=== PATIENT | female | born 1960 | race Caucasian/White ===

== ENCOUNTER 2025-02-19 11:44 | Inpatient (IN) | payer OTHER ==
[~2025-02-19] VITALS: Ht 167.6 cm; Wt 60.0 kg
[~2025-02-19 11:44] MED LIST: METH10 PO
[2025-02-19] MEDS: LORazepam 2 MG/ML VIAL IVP ONE (13:13)
[2025-02-19] MEDS: HydrALAZINE HCL 20 MG/ML VIAL IVP ONE (13:13)
[2025-02-19 13:20] LABS: BASOPHILS % (AUTO) 0.3 % (0.0-2.0); EOSINOPHILS % (AUTO) 0.4 % (1.0-6.0); HEMOGLOBIN 15.6 g/dL (12.0-16.0); LYMPHOCYTES # (AUTO) 0.9 K/uL (1.0-4.8); LYMPHOCYTES % (AUTO) 11.6 % (22.0-44.0); MEAN CORPUSCULAR HEMOGLOBIN 29.7 pg (26.0-34.0); MEAN CORPUSCULAR VOLUME 87 fL (80-100); MONOCYTES # (AUTO) 0.3 K/uL (0.1-1.0); MONOCYTES % (AUTO) 3.8 % (2.0-9.0); NEUTROPHILS # (AUTO) 6.3 K/uL (1.8-7.7); NEUTROPHILS % (AUTO) 83.9 % (40.0-70.0); PLATELET COUNT (AUTO) 267 K/uL (150-450); RED BLOOD CELL COUNT(AUTO) 5.26 MIL/uL (4.00-5.20); RED CELL DISTRIBUTION WIDTH 12.8 % (11.5-14.5); WHITE BLOOD COUNT (AUTO) 7.5 K/uL (4.5-11.0)
[2025-02-19 13:23] LABS: ANION GAP 7 mmol/L (8-16); CALCIUM, TOTAL 9.7 mg/dL (8.8-10.5); CARBON DIOXIDE 30 mmol/L (22-29); CHLORIDE 101 mmol/L (98-107); CREATININE 0.92 mg/dL (0.60-1.30); GLOMERULAR FILTR. RATE CALC > 60 mL/min (>60); GLUCOSE,RANDOM 134 mg/dL (70-110); SODIUM SERUM 138 mmol/L (136-145); UREA NITROGEN, BLOOD 20 mg/dL (7-18)
[2025-02-19] MEDS ORDERED: DICYCLOMINE HCL 10 MG CAPSULE PO PRN (15:30)
[2025-02-19] MEDS ORDERED: ALBUTEROL SULFATE HFA 90 MCG/PUFF 8 GM INHALER IH PRN (15:45)
[2025-02-19 17:23] VITALS: BP 177/90; PULSE 95; RESP 18; TEMP 98.2; O2SAT 98
[2025-02-19] MEDS: SODIUM CHLORIDE 0.9% 1,000 ML IV ONE (18:08)
[2025-02-19] MEDS: TEMAZEPAM 15 MG CAPSULE PO SCH (20:46)
[2025-02-19 20:49] VITALS: BP 157/85; PULSE 87; RESP 18; TEMP 98.3; O2SAT 98
[2025-02-19] MEDS: LORazepam 2 MG/ML VIAL IVP PRN (20:53)
[2025-02-20] VITALS (9 sets, daily range): BP systolic 141–175; BP diastolic 52–112; PULSE 82–121; RESP 17–19; TEMP 98.2–99.1; O2SAT 96–99
[2025-02-20] MEDS: HydrALAZINE HCL 20 MG/ML VIAL IVP PRN (00:32)
[2025-02-20 12:36] LABS: BASOPHILS % (AUTO) 0.5 % (0.0-2.0); EOSINOPHILS % (AUTO) 0.3 % (1.0-6.0); HEMATOCRIT 46.8 % (36-46); HEMOGLOBIN 15.9 g/dL (12.0-16.0); LYMPHOCYTES # (AUTO) 1.3 K/uL (1.0-4.8); LYMPHOCYTES % (AUTO) 16.2 % (22.0-44.0); MEAN CORPUSCULAR HEMOGLOBIN 29.2 pg (26.0-34.0); MEAN CORPUSCULAR HGB CONC 33.9 G/dL (31.0-37.0); MEAN CORPUSCULAR VOLUME 86 fL (80-100); MONOCYTES # (AUTO) 0.3 K/uL (0.1-1.0); MONOCYTES % (AUTO) 3.5 % (2.0-9.0); NEUTROPHILS # (AUTO) 6.3 K/uL (1.8-7.7); NEUTROPHILS % (AUTO) 79.5 % (40.0-70.0); PLATELET COUNT (AUTO) 309 K/uL (150-450); RED BLOOD CELL COUNT(AUTO) 5.43 MIL/uL (4.00-5.20); RED CELL DISTRIBUTION WIDTH 12.9 % (11.5-14.5); WHITE BLOOD COUNT (AUTO) 7.9 K/uL (4.5-11.0)
[2025-02-20 12:51] LABS: ANION GAP 9 mmol/L (8-16); CALCIUM, TOTAL 9.5 mg/dL (8.8-10.5); CARBON DIOXIDE 23 mmol/L (22-29); CHLORIDE 107 mmol/L (98-107); CREATININE 0.72 mg/dL (0.60-1.30); GLOMERULAR FILTR. RATE CALC > 60 mL/min (>60); GLUCOSE,RANDOM 95 mg/dL (70-110); POTASSIUM 3.3 mmol/L (3.5-5.1); SODIUM SERUM 139 mmol/L (136-145); UREA NITROGEN, BLOOD 21 mg/dL (7-18)
[2025-02-20] MEDS: METOCLOPRAMIDE HCL 5 MG/ML 2 ML VIAL IVP PRN (14:29)
[2025-02-20] MEDS: LORazepam 1 MG TABLET PO PRN (17:35)
[2025-02-20 19:09] LABS: ALCOHOL, URINE DRUG SCREEN NEGATIVE (NEGATIVE); AMPHET/METH SCREEN,URINE POSITIVE (NEGATIVE); BARBITURATE SCREEN, URINE NEGATIVE (NEGATIVE); BENZODIAZEPINES SCREEN,URINE NEGATIVE (NEGATIVE); CANNABINOID SCREEN,URINE POSITIVE (NEGATIVE); COCAINE SCREEN,URINE NEGATIVE (NEGATIVE); METHADONE SCREEN, URINE NEGATIVE (NEGATIVE); OPIATE SCREEN,URINE NEGATIVE (NEGATIVE); PHENCYCLIDINE SCREEN,URINE NEGATIVE (NEGATIVE)
[2025-02-21 00:05] VITALS: BP 181/103; PULSE 102; RESP 18; TEMP 98.3; O2SAT 98
[2025-02-21] MEDS: HydrALAZINE HCL 20 MG/ML VIAL IVP PRN (00:10)
[2025-02-21] MEDS: POTASSIUM CHLORIDE 20 MEQ ER TABLET PO ONE (00:10)
[2025-02-21 01:26] VITALS: BP 151/99; PULSE 100
[2025-02-21 04:14] VITALS: BP 156/91; PULSE 112; RESP 18; TEMP 97.9; O2SAT 98
[2025-02-21 08:31] VITALS: BP 154/86; PULSE 124; RESP 18; TEMP 97.9; O2SAT 98
[2025-02-21] MEDS: CloNIDine HCL 0.1 MG TABLET PO SCH (08:34)
[2025-02-21 09:34] LABS: BASOPHILS % (AUTO) 0.3 % (0.0-2.0); EOSINOPHILS % (AUTO) 0.3 % (1.0-6.0); HEMATOCRIT 48.8 % (36-46); HEMOGLOBIN 16.7 g/dL (12.0-16.0); LYMPHOCYTES % (AUTO) 10.7 % (22.0-44.0); MEAN CORPUSCULAR HEMOGLOBIN 29.5 pg (26.0-34.0); MEAN CORPUSCULAR HGB CONC 34.1 G/dL (31.0-37.0); MEAN CORPUSCULAR VOLUME 86 fL (80-100); MONOCYTES # (AUTO) 0.4 K/uL (0.1-1.0); MONOCYTES % (AUTO) 4.5 % (2.0-9.0); NEUTROPHILS % (AUTO) 84.2 % (40.0-70.0); PLATELET COUNT (AUTO) 334 K/uL (150-450); RED BLOOD CELL COUNT(AUTO) 5.65 MIL/uL (4.00-5.20); RED CELL DISTRIBUTION WIDTH 12.8 % (11.5-14.5); WHITE BLOOD COUNT (AUTO) 9.5 K/uL (4.5-11.0)
[2025-02-21 09:53] LABS: ANION GAP 15 mmol/L (8-16); CALCIUM, TOTAL 9.6 mg/dL (8.8-10.5); CARBON DIOXIDE 22 mmol/L (22-29); CHLORIDE 101 mmol/L (98-107); CREATININE 0.79 mg/dL (0.60-1.30); GLOMERULAR FILTR. RATE CALC > 60 mL/min (>60); GLUCOSE,RANDOM 135 mg/dL (70-110); POTASSIUM 3.8 mmol/L (3.5-5.1); SODIUM SERUM 138 mmol/L (136-145); UREA NITROGEN, BLOOD 23 mg/dL (7-18)
[2025-02-21] MEDS: AmLODIPine BESYLATE 5 MG TABLET PO SCH (11:36)
[2025-02-21 12:03] VITALS: BP 164/108; PULSE 113; RESP 16; TEMP 98.3; O2SAT 98
[2025-02-21 19:48] VITALS: BP 132/86; PULSE 92; RESP 18; TEMP 99; O2SAT 94
[2025-02-22] VITALS (7 sets, daily range): BP systolic 145–171; BP diastolic 86–103; PULSE 79–115; RESP 18–19; TEMP 97.5–99.1; O2SAT 96–99
[2025-02-22 07:02] LABS: BASOPHILS % (AUTO) 0.3 % (0.0-2.0); EOSINOPHILS % (AUTO) 0.4 % (1.0-6.0); HEMATOCRIT 48.4 % (36-46); HEMOGLOBIN 16.9 g/dL (12.0-16.0); LYMPHOCYTES # (AUTO) 1.1 K/uL (1.0-4.8); LYMPHOCYTES % (AUTO) 13.3 % (22.0-44.0); MEAN CORPUSCULAR HGB CONC 34.9 G/dL (31.0-37.0); MEAN CORPUSCULAR VOLUME 86 fL (80-100); MONOCYTES # (AUTO) 0.4 K/uL (0.1-1.0); MONOCYTES % (AUTO) 4.9 % (2.0-9.0); NEUTROPHILS # (AUTO) 6.7 K/uL (1.8-7.7); NEUTROPHILS % (AUTO) 81.1 % (40.0-70.0); PLATELET COUNT (AUTO) 278 K/uL (150-450); RED BLOOD CELL COUNT(AUTO) 5.64 MIL/uL (4.00-5.20); RED CELL DISTRIBUTION WIDTH 12.8 % (11.5-14.5); WHITE BLOOD COUNT (AUTO) 8.3 K/uL (4.5-11.0)
[2025-02-22 07:07] LABS: ANION GAP 13 mmol/L (8-16); CALCIUM, TOTAL 9.6 mg/dL (8.8-10.5); CARBON DIOXIDE 25 mmol/L (22-29); CHLORIDE 100 mmol/L (98-107); CREATININE 0.82 mg/dL (0.60-1.30); GLOMERULAR FILTR. RATE CALC > 60 mL/min (>60); GLUCOSE,RANDOM 146 mg/dL (70-110); POTASSIUM 3.8 mmol/L (3.5-5.1); SODIUM SERUM 138 mmol/L (136-145); UREA NITROGEN, BLOOD 21 mg/dL (7-18)
[2025-02-22] MEDS: AmLODIPine BESYLATE 5 MG TABLET PO SCH (21:29)
[2025-02-23] VITALS: BP 147/94; PULSE 83; RESP 18; TEMP 98.6; O2SAT 96
[2025-02-23 04:00] VITALS: BP 150/98; PULSE 93; RESP 16; TEMP 98.6; O2SAT 96
[2025-02-23 06:39] LABS: BASOPHILS % (AUTO) 0.2 % (0.0-2.0); EOSINOPHILS % (AUTO) 0.2 % (1.0-6.0); HEMATOCRIT 49.6 % (36-46); HEMOGLOBIN 17.2 g/dL (12.0-16.0); LYMPHOCYTES # (AUTO) 1.2 K/uL (1.0-4.8); LYMPHOCYTES % (AUTO) 8.6 % (22.0-44.0); MEAN CORPUSCULAR HEMOGLOBIN 29.6 pg (26.0-34.0); MEAN CORPUSCULAR HGB CONC 34.6 G/dL (31.0-37.0); MEAN CORPUSCULAR VOLUME 86 fL (80-100); MONOCYTES # (AUTO) 0.7 K/uL (0.1-1.0); MONOCYTES % (AUTO) 5.2 % (2.0-9.0); NEUTROPHILS # (AUTO) 12.2 K/uL (1.8-7.7); PLATELET COUNT (AUTO) 387 K/uL (150-450); RED CELL DISTRIBUTION WIDTH 12.7 % (11.5-14.5); WHITE BLOOD COUNT (AUTO) 14.2 K/uL (4.5-11.0)
[2025-02-23 06:40] LABS: ANION GAP 12 mmol/L (8-16); CALCIUM, TOTAL 10.3 mg/dL (8.8-10.5); CARBON DIOXIDE 24 mmol/L (22-29); CHLORIDE 99 mmol/L (98-107); CREATININE 0.84 mg/dL (0.60-1.30); GLOMERULAR FILTR. RATE CALC > 60 mL/min (>60); GLUCOSE,RANDOM 182 mg/dL (70-110); NEUTROPHILS % (AUTO) 85.8 % (40.0-70.0); POTASSIUM 3.8 mmol/L (3.5-5.1); SODIUM SERUM 135 mmol/L (136-145); UREA NITROGEN, BLOOD 22 mg/dL (7-18)
[2025-02-23] MEDS: LOPERAMIDE HCL 2 MG CAPSULE PO PRN (08:45)
[2025-02-23] MEDS ORDERED: SODIUM CHLORIDE 0.9% 1,000 ML ONE (10:41)
[2025-02-23 12:00] VITALS: BP 133/83; PULSE 88; RESP 18; TEMP 98.4; O2SAT 96
[2025-02-23] MEDS: ACETAMINOPHEN 325 MG TABLET PO PRN (12:05)
[2025-02-23] MEDS: SODIUM CHLORIDE 0.9% 1,000 ML IV ONE (12:07)
[2025-02-23 16:00] VITALS: BP 139/88; PULSE 88; RESP 18; TEMP 98.6; O2SAT 97
[2025-02-23] MEDS: KETOROLAC TROMETHAMINE 15 MG/ML VIAL IVP PRN (17:46)
[2025-02-23] MEDS: CALCIUM CARBONATE 500 MG CHEWABLE TABLET CHEW ONE (17:46)
[2025-02-23] MEDS: PB/HYOSCY/ATR/SCOP/LIDO/MAALOX 55 ML BOTTLE PO ONE (17:50)
[2025-02-23 20:00] VITALS: BP 140/86; PULSE 82; RESP 18; TEMP 98; O2SAT 97
[2025-02-24 01:18] VITALS: BP 148/96; PULSE 74; RESP 20; TEMP 97.8; O2SAT 99
[2025-02-24 03:36] VITALS: BP 146/99; PULSE 75; RESP 19; TEMP 97.9; O2SAT 98
[2025-02-24 08:00] VITALS: BP 159/89; PULSE 90; RESP 18; TEMP 97.7; O2SAT 100
[2025-02-24 11:39] VITALS: BP 133/78; PULSE 81; RESP 18; TEMP 99; O2SAT 99
[2025-02-24] MEDS ORDERED: AMLO-257 PO (12:13)
[2025-02-24] MEDS ORDERED: CLON0.1T2 PO (12:14)
[2025-02-24] MEDS ORDERED: ACET-784 PO (12:14)
[2025-02-24 15:30] VITALS: BP 125/70; PULSE 79; RESP 18; TEMP 98.2; O2SAT 99
== END 2025-02-24 16:55 | DRG 897 ==
LOC: EMS 11:56 → EDH 14:21 → 5N 17:00
PROVIDERS: ADMIT Internal Medicine; ATTEND Internal Medicine
DX: F11.23 Opioid dependence with withdrawal (principal); R65.10 Systemic inflammatory response syndrome (SIRS) of non-infectious origin without acute organ dysfunction; I10 Essential (primary) hypertension; F17.210 Nicotine dependence, cigarettes, uncomplicated; J45.909 Unspecified asthma, uncomplicated; M79.605 Pain in left leg; Z79.899 Other long term (current) drug therapy; Z88.2 Allergy status to sulfonamides; Z71.51 Drug abuse counseling and surveillance of drug abuser
CPT/HCPCS: 71045; 80048; 80307; 82271; 83735; 85025; 89055; 93005; 96374; 96375; 99285; J0360; J2060; J2765; J7030; 36415-L1; 36415-TC